=== PATIENT | female | born 1985 | race American Indian/Alaskan Native ===

== ENCOUNTER 2020-06-13 20:49 | Observation (INO) | payer OTHER ==
--- NOTE | 2020-06-13 21:21 | Emergency Department Report ---
HPI - General Chief Complaint: Altered Mental Status Time Seen by Provider: 06/13/20 20:55 - HPI HPI: This is a 35-year-old female who presents to the emergency department via EMS for evaluation of altered mental status. Allegedly, per EMS and through the patient's girlfriend, the patient had an episode of nausea with vomiting at about 6:30 PM this evening. She then became incontinent and went nonverbal. Upon arrival to the emergency department, the patient is awake, calm, but is nonverbal. She follows some commands but is a terrible historian given her current medical condition. She has never been to this facility previously. She did not receive anything for her symptoms in route with EMS. ED Past Medical Hx - Past Medical History Previous Medical History?: Yes Hx Hypertension: Yes Hx Diabetes: Yes Hx Renal Disease: Yes - Surgical History Past Surgical History?: Yes Additional Surgical History: unknown - Medications Home Medications: Home Medications Medication Instructions Recorded Confirmed Last Taken Type Empagliflozin [Jardiance] 12.5 mg PO DAILY 06/13/20 06/13/20 Unknown History FLUoxetine [PROzac] 20 mg PO QDAY 06/13/20 06/13/20 Unknown History Gabapentin [Neurontin] 300 mg PO DAILY 06/13/20 06/13/20 Unknown History Losartan [Cozaar] 100 mg PO QDAY 06/13/20 06/13/20 Unknown History Spironolactone [Aldactone] 25 mg PO QDAY 06/13/20 06/13/20 Unknown History carvediloL [Coreg] 3.125 mg PO BID 06/13/20 06/13/20 Unknown History dilTIAZem HCL [Diltiazem 24Hr ER 180 mg PO BID 06/13/20 06/13/20 Unknown History (Xr)] ED Review of Systems ROS: Stated complaint: AMS Other details as noted in HPI Comment: Unobtainable due to pts medical conditions Physical Exam - Physical Exam Vital Signs: Vital Signs 06/13/20 21:00 Temperature 97.8 F Pulse Rate 75 Respiratory 20 Rate Blood Pressure 154/68 [Left] O2 Sat by Pulse 99 Oximetry Physical Exam: GENERAL: The patient is well-developed well-nourished. HENT: Normocephalic. Atraumatic. Patient has moist mucous membranes. EYES: Extraocular motions are intact. Pupils equal reactive to light bilaterally. NECK: Supple. Trachea is midline. CHEST/LUNGS: Clear to auscultation. There is no respiratory distress noted. HEART/CARDIOVASCULAR: Regular. There is no tachycardia. ABDOMEN: Abdomen is soft, nontender. Patient has normal bowel sounds. SKIN: Skin is warm and dry. NEURO: The patient is awake but is nonverbal. Follows some commands. Withdraws from painful stimuli. MUSCULOSKELETAL: There is no tenderness or deformity. There is no limitation range of motion. ED Course Vital Signs 06/13/20 21:00 Temperature 97.8 F Pulse Rate 75 Respiratory 20 Rate Blood Pressure 154/68 [Left] O2 Sat by Pulse 99 Oximetry - Reevaluation(s) Reevaluation #1: 06/14/20 00:29 Lab Results 06/13/20 06/13/20 06/13/20 Range/Units 21:35 21:35 21:35 WBC 11.6 H (4.5-11.0) K/mm3 RBC 3.93 (3.65-5.03) M/mm3 Hgb 10.5 (10.1-14.3) gm/dl Hct 32.1 (30.3-42.9) % MCV 82 (79-97) fl MCH 27 L (28-32) pg MCHC 33 (30-34) % RDW 15.1 (13.2-15.2) % Plt Count 406 (140-440) K/mm3 Lymph % (Auto) 13.9 (13.4-35.0) % [place] % (Auto) 7.6 H (0.0-7.3) % Eos % (Auto) 1.6 (0.0-4.3) % Baso % (Auto) 1.1 (0.0-1.8) % Lymph # (Auto) 1.6 (1.2-5.4) K/mm3 [place] # (Auto) 0.9 H (0.0-0.8) K/mm3 Eos # (Auto) 0.2 (0.0-0.4) K/mm3 Baso # (Auto) 0.1 (0.0-0.1) K/mm3 Seg Neutrophils % 75.8 H (40.0-70.0) % Seg Neutrophils # 8.8 H (1.8-7.7) K/mm3 Sodium 131 L (137-145) mmol/L Potassium 6.3 H* (3.6-5.0) mmol/L Chloride 101.6 (98-107) mmol/L Carbon Dioxide 14 L (22-30) mmol/L Anion Gap 22 mmol/L BUN 46 H (7-17) mg/dL Creatinine 2.6 H (0.6-1.2) mg/dL Estimated GFR 25 ml/min BUN/Creatinine Ratio 18 % Glucose 89 (65-100) mg/dL Calcium 9.5 (8.4-10.2) mg/dL Total Bilirubin < 0.20 (0.1-1.2) mg/dL AST 20 (5-40) units/L ALT 30 (7-56) units/L Alkaline Phosphatase 108 (35-129) units/L Ammonia (25-60) umol/L Troponin T 0.016 (0.00-0.029) ng/mL Total Protein 8.6 H (6.3-8.2) g/dL Albumin 4.2 (3.9-5) g/dL Albumin/Globulin Ratio 1.0 % TSH (0.270-4.200) mlU/mL Salicylates (2.8-20.0) mg/dL Acetaminophen 5.0 L (10.0-30.0) ug/mL Plasma/Serum Alcohol (0-0.07) % 06/13/20 06/13/20 06/13/20 Range/Units 21:35 21:35 21:35 WBC (4.5-11.0) K/mm3 RBC (3.65-5.03) M/mm3 Hgb (10.1-14.3) gm/dl Hct (30.3-42.9) % MCV (79-97) fl MCH (28-32) pg MCHC (30-34) % RDW (13.2-15.2) % Plt Count (140-440) K/mm3 Lymph % (Auto) (13.4-35.0) % [place] % (Auto) (0.0-7.3) % Eos % (Auto) (0.0-4.3) % Baso % (Auto) (0.0-1.8) % Lymph # (Auto) (1.2-5.4) K/mm3 [place] # (Auto) (0.0-0.8) K/mm3 Eos # (Auto) (0.0-0.4) K/mm3 Baso # (Auto) (0.0-0.1) K/mm3 Seg Neutrophils % (40.0-70.0) % Seg Neutrophils # (1.8-7.7) K/mm3 Sodium (137-145) mmol/L Potassium (3.6-5.0) mmol/L Chloride (98-107) mmol/L Carbon Dioxide (22-30) mmol/L Anion Gap mmol/L BUN (7-17) mg/dL Creatinine (0.6-1.2) mg/dL Estimated GFR ml/min BUN/Creatinine Ratio % Glucose (65-100) mg/dL Calcium (8.4-10.2) mg/dL Total Bilirubin (0.1-1.2) mg/dL AST (5-40) units/L ALT (7-56) units/L Alkaline Phosphatase (35-129) units/L Ammonia 19.0 L (25-60) umol/L Troponin T (0.00-0.029) ng/mL Total Protein (6.3-8.2) g/dL Albumin (3.9-5) g/dL Albumin/Globulin Ratio % TSH 1.250 (0.270-4.200) mlU/mL Salicylates (2.8-20.0) mg/dL Acetaminophen (10.0-30.0) ug/mL Plasma/Serum Alcohol < 0.01 (0-0.07) % 06/13/20 Range/Units 21:35 WBC (4.5-11.0) K/mm3 RBC (3.65-5.03) M/mm3 Hgb (10.1-14.3) gm/dl Hct (30.3-42.9) % MCV (79-97) fl MCH (28-32) pg MCHC (30-34) % RDW (13.2-15.2) % Plt Count (140-440) K/mm3 Lymph % (Auto) (13.4-35.0) % [place] % (Auto) (0.0-7.3) % Eos % (Auto) (0.0-4.3) % Baso % (Auto) (0.0-1.8) % Lymph # (Auto) (1.2-5.4) K/mm3 [place] # (Auto) (0.0-0.8) K/mm3 Eos # (Auto) (0.0-0.4) K/mm3 Baso # (Auto) (0.0-0.1) K/mm3 Seg Neutrophils % (40.0-70.0) % Seg Neutrophils # (1.8-7.7) K/mm3 Sodium (137-145) mmol/L Potassium (3.6-5.0) mmol/L Chloride (98-107) mmol/L Carbon Dioxide (22-30) mmol/L Anion Gap mmol/L BUN (7-17) mg/dL Creatinine (0.6-1.2) mg/dL Estimated GFR ml/min BUN/Creatinine Ratio % Glucose (65-100) mg/dL Calcium (8.4-10.2) mg/dL Total Bilirubin (0.1-1.2) mg/dL AST (5-40) units/L ALT (7-56) units/L Alkaline Phosphatase (35-129) units/L Ammonia (25-60) umol/L Troponin T (0.00-0.029) ng/mL Total Protein (6.3-8.2) g/dL Albumin (3.9-5) g/dL Albumin/Globulin Ratio % TSH (0.270-4.200) mlU/mL Salicylates < 0.3 L (2.8-20.0) mg/dL Acetaminophen (10.0-30.0) ug/mL Plasma/Serum Alcohol (0-0.07) % - Consultations Consultation #1: 06/14/20 00:29 I spoke with the private branch exchange operator on-call, Dr. Senior, regarding the patient's kidney disease and hyperkalemia. He agrees with the hyperkalemia cocktail and the patient will be seen as a consult. Consultation #2: 06/14/20 00:29 The patient was seen by the telemedicine neurologist, Dr. Inman, and her full consult is in the chart. She feels that this is most likely consistent with a seizure, but recommend admission for further work-up including EEG and MRI. She also has recommended a loading dose of Keppra. ED Medical Decision Making - Lab Data Result diagrams: 06/13/20 21:35 06/13/20 21:35 - EKG Data -: EKG Interpreted by Me EKG shows normal: sinus rhythm, axis, intervals, QRS complexes, ST-T waves Rate: normal - EKG Data When compared to previous EKG there are: previous EKG unavailable Interpretation: normal EKG - Radiology Data Radiology results: report reviewed CT HEAD WITHOUT CONTRAST INDICATION: Altered mental status, nonverbal TECHNIQUE: All CT scans at this location are performed using CT dose reduction for ALARA by means of automated exposure control. COMPARISON: None available. FINDINGS: BRAIN: No hemorrhage or mass effect are seen. No evidence of acute infarction is noted. ORBITS: Normal as visualized. SOFT TISSUES OF HEAD: Normal. CALVARIUM: Normal. VISUALIZED PARANASAL SINUSES AND MASTOID AIR CELLS: Clear. ADDITIONAL FINDINGS: None. IMPRESSION: No acute intracranial abnormality. - Medical Decision Making This patient presents to the emergency department after having some nausea with vomiting, an episode of incontinence, and going nonverbal. Upon arrival to the emergency department the patient remains nonverbal. She does follow some commands as she will squeeze my hand, give a thumbs up, and lightly shake her head, but the patient will not speak to answer any questions. CT scan of the he ad without contrast was done that did not show any bleed, shift, mass, ischemia, or any other acute process. EKG did not have any morphology consistent with ST elevation myocardial infarction or any dysrhythmia. Patient's labs shows renal failure with a GFR of about 25 and hyperkalemia with potassium of 6.3. Unknown if the patient has any history as the patient is a poor historian so I am under the assumption that this is acute renal failure. The patient will be treated for the hyperkalemia with Kayexalate, albuterol, insulin and glucose, calcium gluconate. Nephrology has been contacted and consulted. The patient was seen by telemedicine neurology who thinks it is most likely consistent with a new onset seizure, but recommends admission for EEG and MRI and inpatient neurology consult. Patient was accepted for admission by the hospitalist, Dr. Hodge. Critical Care Time: Yes Critical care time in (mins) excluding proc time.: 35 Critical care attestation.: If time is entered above; I have spent that time in minutes in the direct care of this critically ill patient, excluding procedure time. Critical care time was spent on this patient in doing her initial evaluation, multiple reevaluations, ordering and interpretation of labs and imaging, discussion with the private branch exchange operator, discussion with telemedicine neurology. Critical Care Time: 35 minutes ED Disposition Clinical Impression: Acute encephalopathy, Hyperkalemia Hypertension Qualifiers: Hypertension type: essential hypertension Qualified Code(s): I10 - Essential (primary) hypertension Acute renal failure Qualifiers: Acute renal failure type: unspecified Qualified Code(s): N17.9 - Acute kidney failure, unspecified Disposition: DC-09 OP ADMIT IP TO THIS HOSP Is pt being admited?: Yes Condition: Fair Time of Disposition: 23:38
--- NOTE | 2020-06-13 22:10 | Cat Scan Report ---
CT HEAD WITHOUT CONTRAST INDICATION: Altered mental status, nonverbal TECHNIQUE: All CT scans at this location are performed using CT dose reduction for ALARA by means of automated exposure control. COMPARISON: None available. FINDINGS: BRAIN: No hemorrhage or mass effect are seen. No evidence of acute infarction is noted. ORBITS: Normal as visualized. SOFT TISSUES OF HEAD: Normal. CALVARIUM: Normal. VISUALIZED PARANASAL SINUSES AND MASTOID AIR CELLS: Clear. ADDITIONAL FINDINGS: None. IMPRESSION: No acute intracranial abnormality. Signer Name: Chace Rm MD Signed: 06/13/2020 10:06 PM Workstation Name: [id number]
[2020-06-13 22:17] LABS: Basophils # (Auto) 0.1 K/mm3 (0.0-0.1); Basophils % (Auto) 1.1 % (0.0-1.8); Eosinophils # (Auto) 0.2 K/mm3 (0.0-0.4); Eosinophils % (Auto) 1.6 % (0.0-4.3); Hematocrit 32.1 % (30.3-42.9); Hemoglobin 10.5 gm/dl (10.1-14.3); Lymphocytes # (Auto) 1.6 K/mm3 (1.2-5.4); Lymphocytes % (Auto) 13.9 % (13.4-35.0); Mean Corpuscular HGB Conc 33 % (30-34); Mean Corpuscular Volume 82 fl (79-97); Monocytes # (Auto) 0.9 K/mm3 (0.0-0.8); Monocytes % (Auto) 7.6 % (0.0-7.3); Platelet Count 406 K/mm3 (140-440); Red Blood Count 3.93 M/mm3 (3.65-5.03); Red Cell Distribution Width 15.1 % (13.2-15.2)
[2020-06-13 22:20] LABS: Alanine Aminotransferase 30 units/L (7-56); Albumin 4.2 g/dL (3.9-5); BUN/Creatinine Ratio 18; Blood Urea Nitrogen 46 mg/dL (7-17); Calcium 9.5 mg/dL (8.4-10.2); Hemolysis Index 4
[2020-06-13] MEDS ORDERED: CALCIUM GLUCONATE 1000 MG/10 ML INJ IV ONE (22:34)
[2020-06-13] MEDS ORDERED: SODIUM POLYSTYRENE 15 GM/60 ML ORAL LIQD PO ONE (22:35)
[2020-06-13] MEDS ORDERED: DEXTROSE 50% IN WATER (25GM) 50 ML SYRINGE IV ONE (22:35)
[2020-06-13] MEDS ORDERED: ALBUTEROL 2.5 MG/3 ML NEBU IH ONE (22:36)
[2020-06-13] MEDS ORDERED: SODIUM BICARB 8.4% 50 MEQ/50 ML SYRINGE IV ONE (22:40)
[2020-06-13] MEDS ORDERED: INSULIN REGULAR, HUMAN 100 UNIT/ML 3ML VIAL IV ONE (22:41)
[2020-06-13] MEDS ORDERED: CALCIUM GLUCONATE 1,000 MG in SODIUM CHLORIDE 0.9% 100 ML IV ONE (23:00)
[2020-06-13] MEDS ORDERED: INSULIN REGULAR, HUMAN 100 UNITS/1 ML ONE (23:20)
--- NOTE | 2020-06-13 23:20 | Emergency Department Report ---
ED Altered Mental Status HPI - General Chief Complaint: Altered Mental Status Stated Complaint: AMS Time Seen by Provider: 06/13/20 20:55 Source: EMS Mode of arrival: Stretcher Limitations: Altered Mental Status - Related Data Home Medications Medication Instructions Recorded Confirmed Last Taken Empagliflozin [Jardiance] 12.5 mg PO DAILY 06/13/20 06/13/20 Unknown FLUoxetine [PROzac] 20 mg PO QDAY 06/13/20 06/13/20 Unknown Gabapentin [Neurontin] 300 mg PO DAILY 06/13/20 06/13/20 Unknown Losartan [Cozaar] 100 mg PO QDAY 06/13/20 06/13/20 Unknown Spironolactone [Aldactone] 25 mg PO QDAY 06/13/20 06/13/20 Unknown carvediloL [Coreg] 3.125 mg PO BID 06/13/20 06/13/20 Unknown dilTIAZem HCL [Diltiazem 24Hr ER 180 mg PO BID 06/13/20 06/13/20 Unknown (Xr)] Allergies Allergy/AdvReac Type Severity Reaction Status Date / Time No Known Allergies Allergy Unverified 06/13/20 20:56 ED Review of Systems ROS: Stated complaint: AMS Other details as noted in HPI ED Past Medical Hx - Past Medical History Previous Medical History?: Yes Hx Hypertension: Yes Hx Diabetes: Yes Hx Renal Disease: Yes - Surgical History Past Surgical History?: Yes Additional Surgical History: unknown - Social History Smoking Status: Never Smoker Substance Use Type: Alcohol - Medications Home Medications: Home Medications Medication Instructions Recorded Confirmed Last Taken Type Empagliflozin [Jardiance] 12.5 mg PO DAILY 06/13/20 06/13/20 Unknown History FLUoxetine [PROzac] 20 mg PO QDAY 06/13/20 06/13/20 Unknown History Gabapentin [Neurontin] 300 mg PO DAILY 06/13/20 06/13/20 Unknown History Losartan [Cozaar] 100 mg PO QDAY 06/13/20 06/13/20 Unknown History Spironolactone [Aldactone] 25 mg PO QDAY 06/13/20 06/13/20 Unknown History carvediloL [Coreg] 3.125 mg PO BID 06/13/20 06/13/20 Unknown History dilTIAZem HCL [Diltiazem 24Hr ER 180 mg PO BID 06/13/20 06/13/20 Unknown History (Xr)] ED Physical Exam - General Limitations: Altered Mental Status ED Course Vital Signs 06/13/20 21:00 Temperature 97.8 F Pulse Rate 75 Respiratory 20 Rate Blood Pressure 154/68 [Left] O2 Sat by Pulse 99 Oximetry - Reevaluation(s) Reevaluation #1: 06/13/20 23:19 [facility] Tele[facility] Consult Services Stat Consult Date of Service: 06/13/2020 22:43:16 Impression: Seizure Comments/Sign-Out: Patient with history of hypertension and diabetes who presents after an episode of unresponsiveness and incontinence. Possible seizure with postictal confusion, although history is very limited. Admit for workup including EEG, MRI brain, loading dose of keppra, seizure precautions, ativan PRN, infectious workup, repeat chem in am, fu with neurology. CT HEAD: Showed No Acute Hemorrhage or Acute Core Infarct Reviewed Metrics: [facility] Notification Time: 06/13/2020 22:41:27 Stamp Time: 06/13/2020 22:43:16 Callback Response Time: 06/13/2020 22:45:22 Video Start Time: 06/13/2020 23:01:15 Our recommendations are outlined below. Recommendations: Load With Keppra 1000 mg Now ativan prn for seizure >5min Imaging Studies: MRI Head Other WorkUp: Infectious/metabolic workup per primary team Check CMP Check an ammonia level Check B12 level Check TSH Check Urinalysis Disposition: Neurology Follow Up Recommended Sign Out: Discussed with Emergency Department Provider Chief Complaint: new onset of seizure History of Present Illness: Patient is a 35 year old Female. Patient is a 35 yr with hx of hypertension and diabetes who presents after episode of unresponsiveness. She had an episode of vomiting, altered mental status and incontinence. No prior hx of seizure, no head injuries, no recent infections. No hx of meningitis/encephalitis. she is reporting pain in the left leg. She is also having some dizziness, chest pain and headache. Na 131, K 6.3 Past Medical History: Hypertension Diabetes Mellitus Anticoagulant use: No Antiplatelet use: No Examination: BP(154/68), Pulse(75), Blood Glucose(89) 1A: Level of Consciousness - Arouses to minor stimulation + 1 1B: Ask Month and Age - Both Questions Right + 0 1C: Blink Eyes & Squeeze Hands - Performs Both Tasks + 0 2: Test Horizontal Extraocular Movements - Normal + 0 3: Test Visual Reed - No Visual Loss + 0 4: Test Facial Palsy (Use Grimace if Obtunded) - Normal symmetry + 0 5A: Test Left Arm Motor Drift - No Drift for 10 Seconds + 0 5B: Test Right Arm Motor Drift - No Drift for 10 Seconds + 0 6A: Test Left Leg Motor Drift - No Drift for 5 Seconds + 0 6B: Test Right Leg Motor Drift - No Drift for 5 Seconds + 0 7: Test Limb Ataxia (FNF/Heel-Green) - No Ataxia + 0 8: Test Sensation - Normal; No sensory loss + 0 9: Test Language/Aphasia - Normal; No aphasia + 0 10: Test Dysarthria - Normal + 0 11: Test Extinction/Inattention - No abnormality + 0 NIHSS Score: 1 Patient/Family was informed the Neurology Consult would happen via TeleHealth consult by way of interactive audio and video telecommunications and consented to receiving care in this manner. Due to the immediate potential for life-threatening deterioration due to underlying acute neurologic illness, I spent 30 minutes providing critical care. This time includes time for face to face visit via telemedicine, review of medical records, imaging studies and discussion of findings with providers, the patient and/or family. Dr Emma Gupta [facility] Case [id number] - Lab Data Result diagrams: 06/13/20 21:35 06/13/20 21:35 Lab Results 06/13/20 06/13/20 06/13/20 Range/Units 21:35 21:35 21:35 WBC 11.6 H (4.5-11.0) K/mm3 RBC 3.93 (3.65-5.03) M/mm3 Hgb 10.5 (10.1-14.3) gm/dl Hct 32.1 (30.3-42.9) % MCV 82 (79-97) fl MCH 27 L (28-32) pg MCHC 33 (30-34) % RDW 15.1 (13.2-15.2) % Plt Count 406 (140-440) K/mm3 Lymph % (Auto) 13.9 (13.4-35.0) % [place] % (Auto) 7.6 H (0.0-7.3) % Eos % (Auto) 1.6 (0.0-4.3) % Baso % (Auto) 1.1 (0.0-1.8) % Lymph # (Auto) 1.6 (1.2-5.4) K/mm3 [place] # (Auto) 0.9 H (0.0-0.8) K/mm3 Eos # (Auto) 0.2 (0.0-0.4) K/mm3 Baso # (Auto) 0.1 (0.0-0.1) K/mm3 Seg Neutrophils % 75.8 H (40.0-70.0) % Seg Neutrophils # 8.8 H (1.8-7.7) K/mm3 Sodium 131 L (137-145) mmol/L Potassium 6.3 H* (3.6-5.0) mmol/L Chloride 101.6 (98-107) mmol/L Carbon Dioxide 14 L (22-30) mmol/L Anion Gap 22 mmol/L BUN 46 H (7-17) mg/dL Creatinine 2.6 H (0.6-1.2) mg/dL Estimated GFR 25 ml/min BUN/Creatinine Ratio 18 % Glucose 89 (65-100) mg/dL Calcium 9.5 (8.4-10.2) mg/dL Total Bilirubin < 0.20 (0.1-1.2) mg/dL AST 20 (5-40) units/L ALT 30 (7-56) units/L Alkaline Phosphatase 108 (35-129) units/L Ammonia (25-60) umol/L Troponin T 0.016 (0.00-0.029) ng/mL Total Protein 8.6 H (6.3-8.2) g/dL Albumin 4.2 (3.9-5) g/dL Albumin/Globulin Ratio 1.0 % TSH (0.270-4.200) mlU/mL Salicylates (2.8-20.0) mg/dL Acetaminophen 5.0 L (10.0-30.0) ug/mL Plasma/Serum Alcohol (0-0.07) % 06/13/20 06/13/20 06/13/20 Range/Units 21:35 21:35 21:35 WBC (4.5-11.0) K/mm3 RBC (3.65-5.03) M/mm3 Hgb (10.1-14.3) gm/dl Hct (30.3-42.9) % MCV (79-97) fl MCH (28-32) pg MCHC (30-34) % RDW (13.2-15.2) % Plt Count (140-440) K/mm3 Lymph % (Auto) (13.4-35.0) % [place] % (Auto) (0.0-7.3) % Eos % (Auto) (0.0-4.3) % Baso % (Auto) (0.0-1.8) % Lymph # (Auto) (1.2-5.4) K/mm3 [place] # (Auto) (0.0-0.8) K/mm3 Eos # (Auto) (0.0-0.4) K/mm3 Baso # (Auto) (0.0-0.1) K/mm3 Seg Neutrophils % (40.0-70.0) % Seg Neutrophils # (1.8-7.7) K/mm3 Sodium (137-145) mmol/L Potassium (3.6-5.0) mmol/L Chloride (98-107) mmol/L Carbon Dioxide (22-30) mmol/L Anion Gap mmol/L BUN (7-17) mg/dL Creatinine (0.6-1.2) mg/dL Estimated GFR ml/min BUN/Creatinine Ratio % Glucose (65-100) mg/dL Calcium (8.4-10.2) mg/dL Total Bilirubin (0.1-1.2) mg/dL AST (5-40) units/L ALT (7-56) units/L Alkaline Phosphatase (35-129) units/L Ammonia 19.0 L (25-60) umol/L Troponin T (0.00-0.029) ng/mL Total Protein (6.3-8.2) g/dL Albumin (3.9-5) g/dL Albumin/Globulin Ratio % TSH 1.250 (0.270-4.200) mlU/mL Salicylates (2.8-20.0) mg/dL Acetaminophen (10.0-30.0) ug/mL Plasma/Serum Alcohol < 0.01 (0-0.07) % 06/13/20 Range/Units 21:35 WBC (4.5-11.0) K/mm3 RBC (3.65-5.03) M/mm3 Hgb (10.1-14.3) gm/dl Hct (30.3-42.9) % MCV (79-97) fl MCH (28-32) pg MCHC (30-34) % RDW (13.2-15.2) % Plt Count (140-440) K/mm3 Lymph % (Auto) (13.4-35.0) % [place] % (Auto) (0.0-7.3) % Eos % (Auto) (0.0-4.3) % Baso % (Auto) (0.0-1.8) % Lymph # (Auto) (1.2-5.4) K/mm3 [place] # (Auto) (0.0-0.8) K/mm3 Eos # (Auto) (0.0-0.4) K/mm3 Baso # (Auto) (0.0-0.1) K/mm3 Seg Neutrophils % (40.0-70.0) % Seg Neutrophils # (1.8-7.7) K/mm3 Sodium (137-145) mmol/L Potassium (3.6-5.0) mmol/L Chloride (98-107) mmol/L Carbon Dioxide (22-30) mmol/L Anion Gap mmol/L BUN (7-17) mg/dL Creatinine (0.6-1.2) mg/dL Estimated GFR ml/min BUN/Creatinine Ratio % Glucose (65-100) mg/dL Calcium (8.4-10.2) mg/dL Total Bilirubin (0.1-1.2) mg/dL AST (5-40) units/L ALT (7-56) units/L Alkaline Phosphatase (35-129) units/L Ammonia (25-60) umol/L Troponin T (0.00-0.029) ng/mL Total Protein (6.3-8.2) g/dL Albumin (3.9-5) g/dL Albumin/Globulin Ratio % TSH (0.270-4.200) mlU/mL Salicylates < 0.3 L (2.8-20.0) mg/dL Acetaminophen (10.0-30.0) ug/mL Plasma/Serum Alcohol (0-0.07) % Critical care attestation.: If time is entered above; I have spent that time in minutes in the direct care of this critically ill patient, excluding procedure time. ED Disposition Clinical Impression: Seizure Disposition: DC-09 OP ADMIT IP TO THIS HOSP Is pt being admited?: Yes Does the pt Need Aspirin: No Referrals: PRIMARY CARE, [Primary Care Provider] - 3-5 Days
[2020-06-13] MEDS ORDERED: hydrALAZINE 20 MG/1 ML INJ IV ONE (23:21)
[2020-06-13] MEDS ORDERED: levETIRAcetam 1000 MG/NS 0.75% 1,000 MG/100 ML BAG IV ONE (23:26)
[2020-06-14] MEDS ORDERED: LORazepam 2 MG/ML VIAL IV PRN (01:17)
[2020-06-14] MEDS ORDERED: ACETAMINOPHEN 325 MG TAB PO PRN (01:19)
[2020-06-14] MEDS ORDERED: DEXTROSE 50% IN WATER (25GM) 50 ML SYRINGE IV PRN (01:24)
[2020-06-14] MEDS: HEPARIN 5,000 UNIT/1 ML VIAL SUB-Q SCH ×2 (03:05→09:46)
--- NOTE | 2020-06-14 04:46 | History and Physical Report ---
History of Present Illness Date of examination: 06/13/20 Date of admission: 06/13/20 23:38 Chief complaint: Altered mental status History of present illness: 35 year old female presenting to the Emergency room with history of altered mental status according to the girlfriend. There is history of nausea and vomiting, urinary incontinency associated with the altered mental status. There is no history of fever, shortness of breath or chest painj Past History Past Medical History: diabetes, hypertension, renal failure Past Surgical History: No surgical history Social history: no significant social history Family history: no significant family history Medications and Allergies Allergies Allergy/AdvReac Type Severity Reaction Status Date / Time No Known Allergies Allergy Unverified 06/13/20 20:56 Home Medications Medication Instructions Recorded Confirmed Last Taken Type Empagliflozin [Jardiance] 12.5 mg PO DAILY 06/13/20 06/13/20 Unknown History FLUoxetine [PROzac] 20 mg PO QDAY 06/13/20 06/13/20 Unknown History Gabapentin [Neurontin] 300 mg PO DAILY 06/13/20 06/13/20 Unknown History Losartan [Cozaar] 100 mg PO QDAY 06/13/20 06/13/20 Unknown History Spironolactone [Aldactone] 25 mg PO QDAY 06/13/20 06/13/20 Unknown History carvediloL [Coreg] 3.125 mg PO BID 06/13/20 06/13/20 Unknown History dilTIAZem HCL [Diltiazem 24Hr ER 180 mg PO BID 06/13/20 06/13/20 Unknown History (Xr)] Active Meds: Active Medications Acetaminophen (Tylenol) 650 mg PO Q4H PRN PRN Reason: Fever >101 Dextrose (D50w (25gm) Syringe) 0 ml IV Q30MIN PRN; Protocol PRN Reason: Hypoglycemia Heparin Sodium (Porcine) (Heparin) 5,000 unit SUB-Q Q12HR [facility] Last Admin: 06/14/20 03:05 Dose: 5,000 unit Documented by: Insulin Human Regular (Humulin R) 0 unit SUB-Q AC [facility]; Protocol Insulin Human Regular (Humulin R) 0 unit SUB-Q QHS [facility]; Protocol Levetiracetam (Keppra) 750 mg PO BID [facility] Lorazepam (Ativan) 1 mg IV Q4H PRN PRN Reason: Seizures Review of Systems Constitutional: weakness, no weight gain, no fever, no chills, no sweats, no night sweats, no malaise, no lethargy Eyes: bilateral: other (NO BILATERAL EYE SYMPTOM) Breasts: deferred Cardiovascular: no chest pain, no palpitations, no rapid/irregular heart beat, no lightheadedness, no shortness of breath Respiratory: no cough, no shortness of breath, no dyspnea on exertion Gastrointestinal: no abdominal pain, no nausea, no vomiting, no constipation, no hematemesis Rectal: no pain, no incontinence, no bleeding Musculoskeletal: no neck stiffness, no neck pain, no arm numbness/tingling, no low back pain, no shooting leg pain, no leg numbness/tingling, no redness of joints, no morning stiffness, no muscle weakness, no muscle cramps, no myalgias Integumentary: no rash, no pruritis, no redness, no sores, no wounds, no jaundice Neurological: change in mentation, confusion, no transient paralysis, no paralysis, no weakness, no parathesias, no numbness, no seizures, no syncope, no tremors, no ataxia, no vertigo, no headaches, no migraines, no convulsions, no change in speech, no memory loss Psychiatric: confusion, no anxiety, no memory loss, no suicidal ideation, no hallucinations Endocrine: no polyphagia, no polyuria, no nocturia, no excessive sweating, no flushing Hematologic/Lymphatic: no easy bruising, no easy bleeding Exam - Constitutional Vitals: Temp Pulse Resp BP Pulse Ox 97.8 F 101 H 19 171/70 100 06/13/20 21:00 06/14/20 01:40 06/13/20 23:00 06/14/20 01:01 06/13/20 23:00 General appearance: Present: no acute distress - EENT Eyes: Present: PERRL ENT: hearing intact, clear oral mucosa, dentition normal - Neck Neck: Present: supple, normal ROM - Respiratory Respiratory effort: normal - Cardiovascular Rhythm: regular Heart Sounds: Present: S1 & S2. Absent: gallop, systolic murmur, diastolic murmur, click - Extremities Extremities: no ischemia, No edema Peripheral Pulses: within normal limits - Abdominal General gastrointestinal: Present: soft, non-tender, non-distended. Absent: tender, distended, rigid, hepatomegaly, splenomegaly, mass Female genitourinary: Present: deferred - Rectal Rectal Exam: deferred - Integumentary Integumentary: Present: clear, warm - Musculoskeletal Musculoskeletal: strength equal bilaterally HEART Score - HEART Score Risk factors: 1-2 risk factors Troponin: Troponin T 0.016 ng/mL (0.00-0.029) 06/13/20 21:35 Troponin: < normal limit - Critical Actions Critical Actions: 0-3 pts:0.9-1.7%risk of adverse cardiac event.Candidate for discharge Results - Labs CBC & Chem 7: 06/13/20 21:35 06/13/20 21:35 Labs: Laboratory Last Values WBC 11.6 K/mm3 (4.5-11.0) H 06/13/20 21:35 RBC 3.93 M/mm3 (3.65-5.03) 06/13/20 21:35 Hgb 10.5 gm/dl (10.1-14.3) 06/13/20 21:35 Hct 32.1 % (30.3-42.9) 06/13/20 21:35 MCV 82 fl (79-97) 06/13/20 21:35 MCH 27 pg (28-32) L 06/13/20 21:35 MCHC 33 % (30-34) 06/13/20 21:35 RDW 15.1 % (13.2-15.2) 06/13/20 21:35 Plt Count 406 K/mm3 (140-440) 06/13/20 21:35 Lymph % (Auto) 13.9 % (13.4-35.0) 06/13/20 21:35 [place] % (Auto) 7.6 % (0.0-7.3) H 06/13/20 21:35 Eos % (Auto) 1.6 % (0.0-4.3) 06/13/20 21:35 Baso % (Auto) 1.1 % (0.0-1.8) 06/13/20 21:35 Lymph # (Auto) 1.6 K/mm3 (1.2-5.4) 06/13/20 21:35 [place] # (Auto) 0.9 K/mm3 (0.0-0.8) H 06/13/20 21:35 Eos # (Auto) 0.2 K/mm3 (0.0-0.4) 06/13/20 21:35 Baso # (Auto) 0.1 K/mm3 (0.0-0.1) 06/13/20 21:35 Seg Neutrophils % 75.8 % (40.0-70.0) H 06/13/20 21:35 Seg Neutrophils # 8.8 K/mm3 (1.8-7.7) H 06/13/20 21:35 Sodium 131 mmol/L (137-145) L 06/13/20 21:35 Potassium 6.3 mmol/L (3.6-5.0) H* 06/13/20 21:35 Chloride 101.6 mmol/L (98-107) 06/13/20 21:35 Carbon Dioxide 14 mmol/L (22-30) L 06/13/20 21:35 Anion Gap 22 mmol/L 06/13/20 21:35 BUN 46 mg/dL (7-17) H 06/13/20 21:35 Creatinine 2.6 mg/dL (0.6-1.2) H 06/13/20 21:35 Estimated GFR 25 ml/min 06/13/20 21:35 BUN/Creatinine Ratio 18 % 06/13/20 21:35 Glucose 89 mg/dL (65-100) 06/13/20 21:35 Calcium 9.5 mg/dL (8.4-10.2) 06/13/20 21:35 Total Bilirubin < 0.20 mg/dL (0.1-1.2) 06/13/20 21:35 AST 20 units/L (5-40) 06/13/20 21:35 ALT 30 units/L (7-56) 06/13/20 21:35 Alkaline Phosphatase 108 units/L (35-129) 06/13/20 21:35 Ammonia 19.0 umol/L (25-60) L 06/13/20 21:35 Troponin T 0.016 ng/mL (0.00-0.029) 06/13/20 21:35 Total Protein 8.6 g/dL (6.3-8.2) H 06/13/20 21:35 Albumin 4.2 g/dL (3.9-5) 06/13/20 21:35 Albumin/Globulin Ratio 1.0 % 06/13/20 21:35 TSH 1.250 mlU/mL (0.270-4.200) 06/13/20 21:35 Salicylates < 0.3 mg/dL (2.8-20.0) L 06/13/20 21:35 Acetaminophen 5.0 ug/mL (10.0-30.0) L 06/13/20 21:35 Plasma/Serum Alcohol < 0.01 % (0-0.07) 06/13/20 21:35 [place]gu[place]/IV: Voiding Method Bedside Commode IV Catheter Type [Right INT / Saline Lock Antecubital] Assessment and Plan - Patient Problems (1) CKD (chronic kidney disease) Current Visit: Yes Status: Acute Plan to address problem: NEPHROLOGY CONSULT (2) Acute encephalopathy Current Visit: Yes Status: Acute Plan to address problem: NEUROCHECKS (3) Hyperkalemia Current Visit: Yes Status: Acute Plan to address problem: 1. I.V INSULIN AND I.V D50 W 2. KAYEXALETE PO 3. BMP LEVEL 4. I.V CALCIUM GLUCONATE 5. I.V BICARBONATE
[2020-06-14 06:54] LABS: Calcium 9.5 mg/dL (8.4-10.2)
[2020-06-14 07:26] LABS: Bacteria,Urine 1+ /HPF (Negative); Bilirubin,Urine NEG (Negative); Blood,Urine NEG (Negative); Color,Urine Straw (Yellow); Urobilinogen,Urine < 2.0 mg/dL (<2.0)
[2020-06-14 07:30] LABS: Amphetamine Screen,Urine Negative; Benzodiazepines Screen,Urine Negative; Cocaine Screen,Urine Negative; Methadone Screen,Urine Negative; Opiate Screen,Urine Negative
[2020-06-14 07:42] LABS: Cannabinoid Screen,Urine Positive
[2020-06-14] MEDS: INSULIN REGULAR, HUMAN 100 UNIT/ML 3ML VIAL SUB-Q SCH ×2 (07:59→11:55)
[2020-06-14] MEDS ORDERED: SODIUM CHLORIDE 0.9% 1000 ML 1,000 ML IV SCH (09:16)
[2020-06-14] MEDS ORDERED: ONDANSETRON 4 MG/2 ML INJ IV PRN (10:00)
[2020-06-14] MEDS ORDERED: SIMETHICONE 80 MG CHEW TAB PO PRN (10:00)
[2020-06-14] MEDS ORDERED: levETIRAcetam 500 MG/5 ML ORAL LIQD PO SCH (10:00)
--- NOTE | 2020-06-14 11:10 | Consultation ---
History of Present Illness - Reason for Consult Consult date: 06/14/20 acute renal failure, chronic renal failure, hyperkalemia Requesting physician: XAVIER GARCIA - History of Present Illness This is a 35 yo F with past medical history of hypertension, Type 2 DM, obesity who presents to [facility] ER with complaints of changed of mental status. As pt's girlfriend pt had an episode of nausea, vomiting last evening, after which pt became incontinent and nonverbal. After BIBEMS pt was found to nonverbal in ER. CT head showed no acute abnormalities, labs showed elevated BUN/Cr at 46/2.6mg/dl along with significant hyperkalemia (K 6.3) hyponatremia (Na 131) and met acidosis (CO2 14) for which renal consult is requested. 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 Denies recent NSAIDs use or IV contrast exposure. Past History Past Medical History: diabetes, hypertension, renal failure Past Surgical History: No surgical history Social history: no significant social history Family history: no significant family history Medications and Allergies Allergies Allergy/AdvReac Type Severity Reaction Status Date / Time No Known Allergies Allergy Unverified 06/13/20 20:56 Home Medications Medication Instructions Recorded Confirmed Last Taken Type Empagliflozin [Jardiance] 12.5 mg PO DAILY 06/13/20 06/13/20 Unknown History FLUoxetine [PROzac] 20 mg PO QDAY 06/13/20 06/13/20 Unknown History Gabapentin [Neurontin] 300 mg PO DAILY 06/13/20 06/13/20 Unknown History Losartan [Cozaar] 100 mg PO QDAY 06/13/20 06/13/20 Unknown History Spironolactone [Aldactone] 25 mg PO QDAY 06/13/20 06/13/20 Unknown History carvediloL [Coreg] 3.125 mg PO BID 06/13/20 06/13/20 Unknown History dilTIAZem HCL [Diltiazem 24Hr ER 180 mg PO BID 06/13/20 06/13/20 Unknown History (Xr)] Active Meds: Active Medications Acetaminophen (Tylenol) 650 mg PO Q4H PRN PRN Reason: Fever >101 Dextrose (D50w (25gm) Syringe) 0 ml IV Q30MIN PRN; Protocol PRN Reason: Hypoglycemia Heparin Sodium (Porcine) (Heparin) 5,000 unit SUB-Q Q12HR [facility] Last Admin: 06/14/20 09:46 Dose: 5,000 unit Documented by: Sodium Chloride (Nacl 0.9% 1000 Ml) 1,000 mls @ 999 mls/hr IV BOLUS [facility] Stop: 06/14/20 11:16 Last Admin: 06/14/20 09:47 Dose: 999 mls/hr Documented by: Insulin Human Regular (Humulin R) 0 unit SUB-Q AC TALI; Protocol Last Admin: 06/14/20 07:59 Dose: Not Given Documented by: Insulin Human Regular (Humulin R) 0 unit SUB-Q QHS [facility]; Protocol Levetiracetam (Keppra) 750 mg PO BID [facility] Last Admin: 06/14/20 09:46 Dose: 750 mg Documented by: Lorazepam (Ativan) 1 mg IV Q4H PRN PRN Reason: Seizures Ondansetron HCl (Zofran) 4 mg IV Q4H PRN PRN Reason: Nausea And Vomiting Last Admin: 06/14/20 10:03 Dose: 4 mg Documented by: Simethicone (Mylicon) 80 mg PO Q6H PRN PRN Reason: Gas pain Last Admin: 06/14/20 10:03 Dose: 80 mg Documented by: Review of Systems All systems: negative Constitutional: fatigue, weakness Neurological: change in mentation Exam - Vital Signs Vital signs: Vital Signs Temp Pulse Resp BP Pulse Ox 97.8 F 75 20 154/68 99 06/13/20 21:00 06/13/20 21:00 06/13/20 21:00 06/13/20 21:00 06/13/20 21:00 - General Appearance General appearance: well-developed, well-nourished, appears stated age, obese EENT: ATNC, PERRL, mucous membranes moist Neck: Present: neck supple Respiratory: Decreased Breath Sounds Heart: regular, S1S2 Gastrointestinal: Present: normoactive bowel sounds, obese Integumentary: no rash, other (no edema ) Neurologic: no focal deficit, alert and oriented x3, strength 5/5, CN 3-12 intact Psychiatric: mood/affect appropriate, cooperative Results - Lab Results 06/13/20 21:35 06/14/20 05:10 Most recent lab results Calcium 9.5 mg/dL (8.4-10.2) 06/14/20 05:10 Assessment and Plan - Patient Problems (1) Hyperkalemia Current Visit: Yes Status: Acute Plan to address problem: s/p treatment with D50/IV insulin, kayexalate, IV bicarb. K improved. cont 2g K renal diet. hold spironolactone/losartan (2) Acute renal failure Current Visit: Yes Status: Acute Qualifiers: Acute renal failure type: unspecified Qualified Code(s): N17.9 - Acute kidney failure, unspecified Plan to address problem: likely pre-renal azotemia in the setting of concurrent treatment with spironolactone/ARB, also leading to hyperkalemia, superimposed on CKD. both spironolactone/losartan d/johnnie. Hyperkalemia treated medically. check urine lytes, urine P/C ratio. avoid further nephrotoxins, NSAIDs, IV contrast. Will monitor lytes/renal parameters closely and make further recommendations. K improved, no acute indication for renal replacement therapy at present (3) Type 2 diabetes mellitus with diabetic chronic kidney disease Current Visit: Yes Status: Acute Plan to address problem: diabetes management as per primary attending (4) Metabolic acidosis Current Visit: Yes Status: Acute Plan to address problem: improved s/p bicarb IVP, start po Na bicarb 1300mg po bid (5) Hypertension Current Visit: Yes Status: Acute Qualifiers: Hypertension type: essential hypertension Qualified Code(s): I10 - Essential (primary) hypertension Plan to address problem: monitor on current meds
[2020-06-14] MEDS ORDERED: SODIUM BICARBONATE 650 MG TAB PO SCH (12:00)
--- NOTE | 2020-06-14 12:02 | Discharge Summary ---
Providers - Providers Date of Admission: 06/13/20 23:38 Attending physician: MILIND HEAD MD 06/13/20 22:40 Consult to Physician [CONS] Routine Comment: Consulting Provider: BOUCHRA CORLEY Physician Instructions: Reason For Exam: acute renal failure, hyperkalemia Primary care physician: COMPLIANCE ANALYST Hospitalization Reason for admission: AMS Condition: Fair Hospital course: This is a 35 yo F with past medical history of hypertension, Type 2 DM, obesity who presents to [facility] ER with complaints of changed of mental status. As pt's g irlfriend pt had an episode of nausea, vomiting last evening, after which pt became incontinent and nonverbal. Patient has clinically improved while she denies any illegal drug use or tobacco use she miraculously has marijuana in her urine which she states that she is unsure how he got there but she was at a [facility] a few days ago. She also reports that she is not versus had hysterectomy. After BIBEMS pt was found to nonverbal in ER. CT head showed no acute abnormalities, labs showed elevated BUN/Cr at 46/2.6mg/dl along with significant hyperkalemia (K 6.3) hyponatremia (Na 131) and met acidosis (CO2 14) for which renal consult is requested. 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 Denies recent NSAIDs use or IV contrast exposure. (1) acute metabolic encephalopathy (2) hyperkalemia Current Visit: Yes Status: Acute Plan to address problem: s/p treatment with D50/IV insulin, kayexalate, IV bicarb. K improved. cont 2g K renal diet. hold spironolactone/losartan patient will have reevaluated by her kidney doctor. (3) Acute renal failure Current Visit: Yes Status: Acute Qualifiers: Acute renal failure type: unspecified Qualified Code(s): N17.9 - Acute kidney failure, unspecified Plan to address problem: likely pre-renal azotemia in the setting of concurrent treatment with spironolactone/ARB, also leading to hyperkalemia, superimposed on CKD. both spironolactone/losartan d/johnnie. Hyperkalemia treated medically. check urine lytes, urine P/C ratio. avoid further nephrotoxins, NSAIDs, IV contrast. Will monitor lytes/renal parameters closely and make further recommendations. K improved, no acute indication for renal replacement therapy at present (4) Type 2 diabetes mellitus with diabetic chronic kidney disease Current Visit: Yes Status: Acute Plan to address problem: diabetes management as per primary attending (5) Metabolic acidosis Current Visit: Yes Status: Acute Plan to address problem: improved s/p bicarb IVP, start po Na bicarb 1300mg po bid (6) Hypertension Current Visit: Yes Status: Acute Qualifiers: Hypertension type: essential hypertension Qualified Code(s): I10 - Essential (primary) hypertension Plan to address problem: monitor on current meds (7) THC abuse Substance abuse counseling provided Disposition: DC-01 TO HOME OR SELFCARE Time spent for discharge: 35 mins Core Measure Documentation - Palliative Care Palliative Care/ Comfort Measures: Not Applicable - Core Measures Any of the following diagnoses?: none Exam - Physical Exam Narrative exam: VITAL SIGNS: Reviewed. GENERAL: The patient appears normally developed, obese Vital signs as documented. HEAD: No signs of head trauma. EYES: Pupils are equal. Extraocular motions intact. EARS: Hearing grossly intact. MOUTH: Oropharynx is normal. NECK: No adenopathy, no JVD. CHEST: Chest with clear breath sounds bilaterally. No wheezes, rales, or rhonchi. CARDIAC: Regular rate and rhythm. S1 and S2, without murmurs, gallops, or rubs. VASCULAR: No Edema. Peripheral pulses normal and equal in all extremities. ABDOMEN: Soft, non tender and non distended. No rebound or guarding, and no masses palpated. Bowel Sounds normal. MUSCULOSKELETAL: Good range of motion of all major joints. Extremities without clubbing, cyanosis or edema. NEUROLOGIC EXAM: Alert and oriented x 3 No focal sensory or strength deficits. Speech normal. Follows commands. PSYCHIATRIC: Mood normal. SKIN: detail exam as documented in skin assessment - Constitutional Vitals: Temp Pulse Resp BP Pulse Ox 98.0 F 72 20 124/67 96 06/14/20 07:52 06/14/20 07:52 06/14/20 07:52 06/14/20 07:52 06/14/20 07:52 Plan Activity: advance as tolerated, fall precautions Diet: low fat Special Instructions: record daily weights, record daily BP diary Additional Instructions: Continue to follow with ambulatory care Follow up with: EFRAIN BARRAZA MD [Primary Care Provider] - 3-5 Days Prescriptions: Sodium Bicarbonate 1,300 mg PO BID #30 tablet
[2020-06-14 12:06] VITALS: BP 150/67
[2020-06-14] MEDS ORDERED: INSULIN REGULAR, HUMAN 100 UNIT/ML 3ML VIAL SUB-Q SCH (22:00)
== END 2020-06-14 15:49 | disposition home or self-care (01) ==
LOC: ED 20:49 → 4A 23:38
PROVIDERS: ADMIT Internal Medicine; ATTEND Internal Medicine
DX: G93.40 Encephalopathy, unspecified (principal); N17.9 Acute kidney failure, unspecified; I12.9 Hypertensive chronic kidney disease with stage 1 through stage 4 chronic kidney disease, or unspecified chronic kidney disease; N18.9 Chronic kidney disease, unspecified; E87.5 Hyperkalemia; E11.22 Type 2 diabetes mellitus with diabetic chronic kidney disease; R56.9 Unspecified convulsions; E87.2 Acidosis; Z79.4 Long term (current) use of insulin
CPT/HCPCS: 36415; 70450; 80048; 80053; 80307; 81001; 82140; 82962; 84443; 84484; 85025; 93005; 96361; 96365; 96367; 96372; 96375; 99291; G0378; J0360; J0610; J1644; J1953; J2405; J7030; 80320; G0480; J1815